=== PATIENT | male | born 1940 ===

== ENCOUNTER 2016-09-13 07:11 | Day surgery (SDC) | payer MEDICARE, MEDICAID ==
[2016-09-05 12:27] VITALS: BMI 20.5
[~2016-09-13 07:11] MED LIST: Lactated Ringer's 500 ML IV ONE; Phenylephrine 2.5% Opht Soln OD SCH; Tropicamide 1% Opht SOLUTION OD SCH
[2016-09-13] MEDS ORDERED: Hyaluronidase Human, Recombi 150 U/ML VIAL ONE (07:23)
[2016-09-13] MEDS ORDERED: Lactated Ringer's 1,000 ML IV ONE (07:45)
[2016-09-13] MEDS ORDERED: Povidone Iodine Ophthalmic 5% Soln ONE (08:07)
[2016-09-13] MEDS ORDERED: Carbachol 0.01% IO ONE (08:07)
[2016-09-13] MEDS ORDERED: Tobramycin/Dexamethasone OPHT OINT ONE (08:07)
[2016-09-13] MEDS ORDERED: Tetracaine 0.5% Ophth (OR ONLY) ONE (08:07)
[2016-09-13] MEDS ORDERED: Lidocaine 2% Inj (20ml) ONE (08:08)
[2016-09-13] MEDS ORDERED: Chondroitin/Hyaluronate Opth Syringe KIT (0.55 ml-0.5 ml) IO ONE (08:08)
[2016-09-13 08:12] VITALS: RESP 20; O2SAT 98
[2016-09-13] MEDS ORDERED: Propofol 10 mg/ml Inj (20 ML) ONE (08:12)
[2016-09-13] MEDS ORDERED: Chondroitin/Hyaluronate 40 mg/ml-30 mg/ml Ophth Syringe (0.5 ml) IO ONE (08:39)
[2016-09-13 09:45] VITALS: PULSE 69; TEMP 97
[2016-09-13 09:46] VITALS: BP 135/76
--- NOTE | 2016-09-13 10:46 | OP ---
PROCEDURE DATE: 09/13/2016 PREOPERATIVE DIAGNOSIS: Mature cataract, right eye. POSTOPERATIVE DIAGNOSIS: Mature cataract, right eye. OPERATIVE PROCEDURE: Cataract extraction with lens implant, right eye. ATTENDING: Dr. Ten Guadalupe. ANESTHESIA: Retrobulbar block. COMPLICATIONS: None. ESTIMATED BLOOD LOSS: 0. PROCEDURE: The patient was brought to the operating room and properly identified. Anesthesia staff a dministered intravenous sedation and retrobulbar block was given to the surgical eye. The patient wa s then prepped and draped in the usual sterile fashion. Attention was turned to the surgical eye. A lid speculum was placed into interpalpebral fissure. Si tting temporally two paracentesis incisions were made. The anterior chamber was filled with viscoela stic and a triplanar clear corneal incision was made. Using a cystitome anterior capsular leaflet wa s created. Utrata forceps were used to create a continuous curvilinear capsulorrhexis. Balanced yair t solution on a cannula was used to hydrodissect and hydrodelineate the lens. The lens was then phac oemulsified with no complications. Automated irrigation and aspiration was used to remove the cortex . Viscoelastic was used to deepen the anterior chamber. The lens was placed in the capsular bag. A utomated irrigation and aspiration was used to remove the viscoelastic. The anterior chamber was amy led with Miochol. The wounds were hydrated with balanced salt solution. There was noted to be no le ak at the end of the case and the lens was well positioned. The lid speculum was removed. The eye w as given antibiotics and steroids and covered with a patch and shield. The patient was returned to [facility] recovery room in stable condition. Ten Guadalupe MD cc: [id number] TT: 09/13/2016 10:45:26 tn
== END 2016-09-13 09:34 | disposition home or self-care (01) ==
LOC: C.SDS 07:11
PROVIDERS: ATTEND Ophthalmology
DX: H26.9 Unspecified cataract (principal)
CPT/HCPCS: 66984; J2704; J3470; J7120

== ENCOUNTER 2016-10-11 10:01 | Day surgery (SDC) | payer MEDICARE, MEDICAID ==
[2016-09-05 12:26] VITALS: BMI 20.5
[~2016-10-11 10:01] MED LIST changes: +Carbachol 0.01% IO ONE; +Chondroitin/Hyaluronate Opth Syringe KIT (0.55 ml-0.5 ml) IO ONE; +Ciprofloxacin 0.3% OPTH SOLN OS SCH; +Cyclopentolate 1% Opth (2 ml) OS SCH; +Flurbiprofen 0.03% Opht SOLN OS SCH; +Hyaluronidase Human, Recombi 150 U/ML VIAL ONE; +Lidocaine 2% Inj (20ml) ONE; -Phenylephrine 2.5% Opht Soln OD SCH; +Phenylephrine 2.5% Opht Soln OS SCH; +Povidone Iodine Ophthalmic 5% Soln ONE; +Tetracaine 0.5% Ophth (OR ONLY) ONE; +Tobramycin/Dexamethasone OPHT OINT ONE; -Tropicamide 1% Opht SOLUTION OD SCH; +Tropicamide 1% Opht SOLUTION OS SCH
[2016-10-11] MEDS ORDERED: Lactated Ringer's 500 ML IV ONE (10:48)
[2016-10-11] MEDS ORDERED: Propofol 10 mg/ml Inj (20 ML) ONE (11:44)
[2016-10-11] MEDS ORDERED: Lidocaine Hydrochloride 5 ML INJ ONE (11:44)
[2016-10-11 13:12] VITALS: BP 130/70; PULSE 70; RESP 18; TEMP 98.3; O2SAT 100
--- NOTE | 2016-10-12 09:18 | OP ---
PROCEDURE DATE: 10/11/2016 PREOPERATIVE DIAGNOSIS: Cataract, left eye. POSTOPERATIVE DIAGNOSIS: Cataract, left eye. OPERATIVE PROCEDURE: Cataract extraction and lens implant, left eye. SURGEON: Dr. Guadalupe. ANESTHESIA: Retrobulbar block. COMPLICATIONS: None. ESTIMATED BLOOD LOSS: 0. Ten Guadalupe MD Look at other operative report. This is empty duplicate. cc: [id number] TT: 10/12/2016 09:17:33 jn [email or web address]
--- NOTE | 2016-11-04 14:10 | OP ---
PROCEDURE DATE: 10/11/2016 PREOPERATIVE DIAGNOSIS: Nuclear cataract, left eye. POSTOPERATIVE DIAGNOSIS: Nuclear cataract, left eye. OPERATIVE PROCEDURE: Cataract extraction with lens implant, left eye SURGEON: Dr. Ten Guadalupe. ANESTHESIA: Retrobulbar block. COMPLICATIONS: None. ESTIMATED BLOOD LOSS: Zero. PROCEDURE: The patient was brought to the operating room and properly identified. Anesthesia staff a dministered intravenous sedation and retrobulbar block was given to the surgical eye. The patient wa s then prepped and draped in the usual sterile fashion. Attention was turned to the surgical eye. A lid speculum was placed into interpalpebral fissure. Si tting temporally two paracentesis incisions were made. The anterior chamber was filled with viscoela stic and a triplanar clear corneal incision was made. Using a cystitome anterior capsular leaflet wa s created. Utrata forceps were used to create a continuous curvilinear capsulorrhexis. Balanced yair t solution on a cannula was used to hydrodissect and hydrodelineate the lens. The lens was then phac oemulsified with no complications. Automated irrigation and aspiration was used to remove the cortex . Viscoelastic was used to deepen the anterior chamber. The lens was placed in the capsular bag. A utomated irrigation and aspiration was used to remove the viscoelastic. The anterior chamber was amy led with Miochol. The wounds were hydrated with balanced salt solution. There was noted to be no le ak at the end of the case and the lens was well positioned. The lid speculum was removed. The eye w as given antibiotics and steroids and covered with a patch and shield. The patient was returned to [facility] recovery room in stable condition. Ten Guadalupe MD cc: [id number] TT: 11/04/2016 14:09:27 nc
== END 2016-10-11 13:00 | disposition home or self-care (01) ==
LOC: C.SDS 10:01
PROVIDERS: ATTEND Ophthalmology
DX: H25.12 Age-related nuclear cataract, left eye (principal)
CPT/HCPCS: 66984; J2704; J3470; J7120